=== PATIENT | female | born 1980 | race Asian ===

== ENCOUNTER 2019-04-16 06:50 | Emergency (ER) | payer OTHER ==
[~2019-04-16] VITALS: Ht 157.5 cm; Wt 79.4 kg
[2019-04-16 06:50] VITALS: BP 118/84; TEMP 97.9
[2019-04-16] MEDS ORDERED: CLARITIN10 MG PO (06:58)
[2019-04-16] MEDS ORDERED: ALBUTEROL0.083 % INH (06:59)
== END 2019-04-16 07:52 | disposition home or self-care (01) ==
LOC: ED 06:50
DX: K04.7 Periapical abscess without sinus (principal); R60.9 Edema, unspecified
CPT/HCPCS: 96372; 99282; 99283; J1885

== ENCOUNTER 2020-06-28 14:13 | Emergency (ER) | payer OTHER ==
[~2020-06-28] VITALS: Ht 157.5 cm; Wt 79.4 kg
[~2020-06-28 14:13] MED LIST: ALBUTEROL0.083 % INH; CLARITIN10 MG PO
[2020-06-28 15:25] VITALS: BP 148/92; TEMP 100.4
== END 2020-06-28 15:27 | disposition home or self-care (01) ==
LOC: ED 14:13
DX: J36 Peritonsillar abscess (principal)
CPT/HCPCS: 87502; 87651; 99283

== ENCOUNTER 2020-09-24 15:16 | Emergency (ER) | payer OTHER ==
[~2020-09-24] VITALS: Ht 157.5 cm; Wt 79.4 kg
[2020-09-24 15:22] VITALS: BP 157/96; TEMP 98.8
== END 2020-09-24 16:38 | disposition home or self-care (01) ==
LOC: ED 15:16
DX: K04.7 Periapical abscess without sinus (principal)
CPT/HCPCS: 96372; 99283; J0696; J1885

== ENCOUNTER 2020-10-21 13:56 | Outpatient (CLI) | payer OTHER | END 2020-10-21 21:05 | disposition home or self-care (01) | LOC: MAMMO 13:56 | PROVIDERS: ATTEND Obstetrics & Gynecology | DX: Z12.31 Encounter for screening mammogram for malignant neoplasm of breast (principal) ==

== ENCOUNTER 2022-09-27 15:30 | Outpatient (CLI) | payer OTHER | END 2022-09-27 21:40 | disposition home or self-care (01) | LOC: MAMMO 15:30 | PROVIDERS: ATTEND Family Medicine | DX: Z12.31 Encounter for screening mammogram for malignant neoplasm of breast (principal) ==